=== PATIENT | female | born 1965 | race Two or more races ===

== ENCOUNTER → 2020-05-25 | Day surgery (SDC) | payer MEDICAID ==
[2020-05-05 10:47] LABS: APPEARANCE,URINE CLEAR; BILIRUBIN, URINE NEGATIVE (NEGATIVE); COLOR,URINE PALE YELLOW; GLUCOSE, URINE (UA) NEGATIVE (NEGATIVE); KETONES,URINE NEGATIVE (NEGATIVE); LEUKOCYTE ESTERASE ,URINE 1+ (NEGATIVE); NITRITE,URINE NEGATIVE (NEGATIVE); PH,URINE 7 (4.5-8.0); PROTEIN,URINE NEGATIVE (NEGATIVE); UROBILINOGEN,URINE NORMAL MG/DL (0.0-1.0)
[2020-05-05 10:48] LABS: BASOPHILS % (AUTO) 1.5 % (0.0-2.0); EOSINOPHILS % (AUTO) 1.9 % (0.0-3.0); HEMATOCRIT 48.2 % (37.0-47.0); HEMOGLOBIN 15.7 G/DL (12.0-16.0); LYMPHOCYTES % (AUTO) 29.9 % (20.0-45.0); MEAN CORPUSCULAR VOLUME 97 FL (80-99); MONOCYTES % (AUTO) 5.5 % (1.0-10.0); NEUTROPHILS % (AUTO) 61.1 % (45.0-75.0); PLATELET COUNT 187 K/UL (150-450); RED BLOOD COUNT 4.98 M/UL (4.20-5.40); RED CELL DISTRIBUTION WIDTH 12.6 % (11.6-14.8); WHITE BLOOD COUNT 5.1 K/UL (4.8-10.8)
[2020-05-05 10:55] LABS: ANION GAP 5 mmol/L (5-15); BLOOD UREA NITROGEN 11 mg/dL (7-18); CALCIUM 8.6 MG/DL (8.5-10.1); CARBON DIOXIDE 30 MMOL/L (21-32); CHLORIDE 106 MMOL/L (98-107); CREATININE 0.8 MG/DL (0.55-1.30); POTASSIUM 4.1 MMOL/L (3.5-5.1); SODIUM 141 MMOL/L (136-145)
--- NOTE | 2020-05-05 14:45 | Pre-op HX & Phy Repo 2 SIG ---
DATE OF ADMISSION: 05/09/2020 SCHEDULED FOR OUTPATIENT SURGERY: 05/09/2020. HISTORY OF PRESENT ILLNESS: The patient is a 55-year-old female in overall good health, who presented for routine breast imaging studies, which revealed in the left breast at 12 o'clock, a 14 mm area of calcifications. Core biopsy revealed ductal carcinoma in situ, possible microinvasive carcinoma. She underwent MRI that confirmed the abnormal area in the left breast between 10:00 and 1 o'clock. She was seen by oncologist, who recommended a partial mastectomy and then radiation therapy, pending final pathology. The patient has no family history of breast cancer. No prior history of breast disease. PAST MEDICAL HISTORY AND MEDICATIONS: She sometimes takes pain medications for her knees. ALLERGIES: None. OPERATIONS: Total abdominal hysterectomy and bilateral salpingo-oophorectomy 12 years ago. REVIEW OF SYSTEMS: She is 2, para 2. PHYSICAL EXAMINATION: VITAL SIGNS: The patient is 5 feet 4 inches, 169 pounds. Vital signs within normal limits. HEENT: Within normal limits. LUNGS: Clear. HEART: Regular rhythm. BREASTS: Moderately large and ptotic. Right breast unremarkable. Left breast has some nodularity between 10:00 and 1:00 superior to the areolar border. There is no axillary or supraclavicular lymphadenopathy. ABDOMEN: Soft. PELVIC AND RECTAL: Per primary care. EXTREMITIES: Without edema. NEUROLOGIC: Physiologic. IMPRESSION: Ductal carcinoma in situ, left breast, rule out microinvasive cancer. PLAN: Left breast partial mastectomy with preoperative needle localization. DISCUSSION: I have had a full discussion with the patient regarding the nature of her condition, the nature of the surgery, indications, alternatives, options, and risks including bleeding, infection, scarring or distortion of breast or nipple, need for additional treatment including additional surgery, radiation, chemotherapy or hormonal therapy based on final pathology, etc. All questions have been answered. She understands and agrees to proceed. Alex Bailey M.D. DR: LEON JOB#: [id number] CC: TREMAINE
--- NOTE | 2020-05-07 16:12 | Cardiology Report ---
APPROVED REPORT EKG Measurement Heart [id number] <Conclusion> Normal sinus rhythm Left axis deviation Possible Anterior infarct, age undetermined Abnormal ECG
[2020-05-23 10:32] LABS: BASOPHILS % (AUTO) 1.5 % (0.0-2.0); EOSINOPHILS % (AUTO) 1.8 % (0.0-3.0); HEMATOCRIT 47.2 % (37.0-47.0); HEMOGLOBIN 15.8 G/DL (12.0-16.0); LYMPHOCYTES % (AUTO) 33.9 % (20.0-45.0); MEAN CORPUSCULAR VOLUME 94 FL (80-99); MONOCYTES % (AUTO) 6.1 % (1.0-10.0); NEUTROPHILS % (AUTO) 56.8 % (45.0-75.0); PLATELET COUNT 217 K/UL (150-450); RED BLOOD COUNT 5.01 M/UL (4.20-5.40); RED CELL DISTRIBUTION WIDTH 12.7 % (11.6-14.8); WHITE BLOOD COUNT 5.1 K/UL (4.8-10.8)
[2020-05-23 10:53] LABS: APPEARANCE,URINE CLEAR; BILIRUBIN, URINE NEGATIVE (NEGATIVE); GLUCOSE, URINE (UA) NEGATIVE (NEGATIVE); KETONES,URINE 1+ (NEGATIVE); LEUKOCYTE ESTERASE ,URINE 1+ (NEGATIVE); NITRITE,URINE NEGATIVE (NEGATIVE); PH,URINE 6.5 (4.5-8.0); PROTEIN,URINE 1+ (NEGATIVE); UROBILINOGEN,URINE NORMAL MG/DL (0.0-1.0)
[2020-05-23 11:04] LABS: COLOR,URINE YELLOW
--- NOTE | 2020-05-24 10:15 | Pre-op HX & Phy Repo 2 SIG ---
DATE OF ADMISSION: 05/25/2020 DATE OF SURGERY: Scheduled for outpatient surgery, May 25, 2020. HISTORY OF PRESENT ILLNESS: The patient is a 55-year-old female in overall stable health with ductal carcinoma in situ of the left breast. She originally had imaging that showed calcifications measuring 14 mm in the left breast at 12 o'clock and core biopsy revealed ductal carcinoma in situ, rule out microinvasive cancer. The patient underwent an MRI of her breasts with contrast, which revealed more extensive disease in the left breast between 10 and 1 o'clock. Additional core biopsies of the left breast at 1 o'clock as well as the left breast at 11 o'clock revealed ductal carcinoma in situ. She is scheduled to undergo left breast partial mastectomy with bracketing needle localization. The patient has been seen by Oncology in consultation who agreed with the plan for partial mastectomy and then radiation therapy into the breast. Pending final pathology, additional treatments may be needed. PAST MEDICAL HISTORY/MEDICATIONS: She takes intermittent pain medications for her knees pain. ALLERGIES: None. OPERATIONS: Total abdominal hysterectomy with bilateral salpingo-oophorectomy 12 years ago. REVIEW OF SYSTEMS: She is 2, para 2. PHYSICAL EXAMINATION: GENERAL: The patient is 5 feet 4 inches, 169 pounds. VITAL SIGNS: Within normal limits. HEENT: Within normal limits. LUNGS: Clear. HEART: Regular rhythm. BREASTS: Moderately large and ptotic. Right breast is unremarkable. Left breast has palpable nodularity above the areola between 10 and 1 o'clock. There is no palpable axillary or supraclavicular lymphadenopathy. ABDOMEN: Soft. PELVIC: Per primary care. RECTAL: Per primary care. EXTREMITIES: Without edema. NEUROLOGIC: Physiologic. IMPRESSION: Ductal carcinoma, left breast, extensive. PLAN: Left breast partial mastectomy with preoperative bracketing needle localization. DISCUSSION: I have had a full discussion with the patient regarding the nature of the condition, the nature of the surgery, indications, alternatives, options, and risks including bleeding, infection, scarring or distortion of breast or nipple, need for additional treatment including possible additional surgery based on final pathology, etc. All questions have been answered. The patient understands and agrees to proceed. lAex Bailey M.D. DR: DAVIS JOB#: [id number] CC:
[~2020-05-25] VITALS: Ht 162.6 cm; Wt 74.8 kg
[2020-05-25] VITALS (11 sets, daily range): BP systolic 105–139; BP diastolic 63–75
[~2020-05-25] MED LIST: Acetaminophen (Non formulary) 100 ML IV ONE; Atropine Sulfate 0.4mg/ml inj IVP PRN; Bacitracin 50000 Units Vial ONE; Bacitracin Oint 15gm Tube TOPIC ONE; CENTRUM COMPLE1 EAC1 PO; D5 1/2NS 1,000 ML IV SCH; DiphenhydrAMINE 50mg/ml Inj IVP PRN; HYDROcodone/Acetamin 5/325 tab ORAL PRN; HYDROcodone/Acetamin 7.5/325 tab ORAL PRN; HYDROmorphone 1mg/ml Carpuject SUBQ PRN; Hydromorphone 0.5mg/0.5ml inj IVP PRN; Ketorolac 30mg Inj IV PRN; LORazepam Inj 2mg/ml 1ml IV PRN; LR 1000ml 1,000 ML IVLG SCH; LR 1000ml ONE; Labetalol 5mg/ml 20ml vial IV PRN; Lidocaine 1% MPF 10mg/ml 5ml ONE; Meperidine 25mg/1ml Inj (FOR RIGORS ONLY) IV PRN; Metoclopramide 10mg/2ml Inj IVP PRN; Midazolam 2mg/2ml Inj IVP PRN; NEURONTIN100 MG ORAL; OMEPRAZOLE40 M1 ORAL; PAXIL10 MG ORAL; Tylenol #3 tab (300mg/30mg) ORAL PRN; VITAMIN D PO; fentaNYL 100 mcg/2 mL IV PRN; oxyCODONE HCL/Acetaminophen 5/325mg ORAL PRN
--- NOTE | 2020-05-25 10:53 | Anethesia Preoperative Eval ---
Anesthesia Pre-op PMH/ROS General Date of Evaluation: May 25, 2020 Time of Evaluation: 11:01 Anesthesiologist: Abelardo ASA Score: ASA 3 Mallampati Score Class I : Soft palate, uvula, fauces, pillars visible Class II: Soft palate, uvula, fauces visible Class III: Soft palate, base of uvula visible Class IV: Only hard plate visible Mallampati Classification: Class II Surgeon: Leo Diagnosis: Ductal carcinoma in situ Surgical Procedure: L Partial Mastectomy Anesthesia History: none Family History: no anesthesia problems Allergies: Coded Allergies: No Known Allergies (Unverified , 05/23/20) Medications: see eMAR Patient NPO?: Yes Past Medical History Cardiovascular: Reports: HTN Gastrointestinal/Genitourinary: Reports: GERD - Gastritis Neurologic/Psychiatric: Reports: depression/anxiety Hematology/Immune: Reports: other - BBL Breast ductal carcinoma in situ Anesthesia Pre-op Phys. Exam Physician Exam Last Vital Signs Date Time Temp Pulse Resp B/P (MAP) Pulse Ox O2 Delivery O2 Flow Rate FiO2 05/25/20 09:58 Room Air 05/25/20 09:37 98.4 62 18 118/75 97 Constitutional: NAD Neurologic: CN 2-12 intact Cardiovascular: RRR Respiratory: CTA Gastrointestinal: S/NT/ND Airway Exam Mallampati Score: Class II MO: full ROM: full Teeth: missing, intact Anesthesia Pre-op A/P Risk Assessment & Plan Assessment: ASA 3 Plan: GA, SED Status Change Before Surgery: No Pre-Antibiotics Dru Gram Ancef IV Given Within 1 Hr of Incision: Yes Time Given: 11:21 Lawrence Zhou MD May 25, 2020 10:53
--- NOTE | 2020-05-25 10:54 | Immediate Post-Op Evaluation ---
Immediate Post-Op Evalulation Immediate Post-Op Evalulation Procedure: L Breast Partial Mastectomy Date of Evaluation: May 25, 2020 Time of Evaluation: 12:55 IV Fluids: 1000 LR Blood Products: 0 Estimated Blood Loss: 20 Urinary Output: 0 Blood Pressure Systolic: 139 Blood Pressure Diastolic: 69 Pulse Rate: 79 Respiratory Rate: 16 O2 Sat by Pulse Oximetry: 99 Temperature (Fahrenheit): 97.1 Pain Score (1-10): 2 Nausea: No Vomiting: No Complications 0 Patient Status: awake, reacts, patent, none Hydration Status: adequate Dru Gram Ancef IV Given Within 1 Hr of Incision: Yes Time Given: 11:21 Lawrence Zhou MD May 25, 2020 10:54
--- NOTE | 2020-05-25 10:57 | Pre-Procedure Note/Attestation ---
Pre-Procedure Note/Attestation Complete Prior to Procedure Planned Procedure: left Procedure Narrative: left breast partial mastectomy with pre-operative bracketing needle localization Indications for Procedure Pre-Operative Diagnosis: ductal carcinoma in situ left breast Attestation I attest that I discussed the nature of the procedure; its benefits; risks and complications; and alternatives (and the risks and benefits of such alternatives), prior to the procedure, with the patient (or the patient's legal personal banking representative). I attest that, if there was a reasonable possibility of needing a blood transfusion, the patient (or the patient's legal personal banking representative) was given the [facility] standardized written summary, pursuant to the Nigel Winslow Blood Safety Act ([place] Health and Safety Code # 1645, as amended). I attest that I re-evaluated the patient just prior to the surgery and that there has been no change in the patient's H&P, except as documented below:none Alex Bailey MD May 25, 2020 10:57
--- NOTE | 2020-05-25 11:49 | 48 Hour Post Anesthesia Eval ---
Post Anesthesia Evaluation Procedure: L Breast Partial Mastectomy Date of Evaluation: May 25, 2020 Time of Evaluation: 15:32 Blood Pressure Systolic: 138 0: 64 Pulse Rate: 73 Respiratory Rate: 18 Temperature (Fahrenheit): 98 O2 Sat by Pulse Oximetry: 98 Airway: patent Nausea: No Vomiting: No Pain Intensity: 2 Hydration Status: adequate Cardiopulmonary Status: Stable Mental Status/LOC: patient returned to baseline Follow-up Care/Observations: 0 Post-Anesthesia Complications: 0 Follow-up care needed: ready to discharge Lawrence Zhou MD May 25, 2020 11:49
--- NOTE | 2020-05-25 12:42 | Brief Operative Note ---
Immediate Post Operative Note Operative Note Pre-op Diagnosis: ductal carcinoma in situ left breast Procedure: left breast partial mastectomy with pre-operative bracketing needle localization Post-op Diagnosis: multifocal ductal carcinoma in situ left breast Post-op Diagnosis: same as pre-op Findings: consistent w/pre-op dx studies Surgeon: venkata Anesthesiologist: lilly Specimen: yes - left breast tissue Complications: none Condition: stable Fluids: see anesthesia record Estimated Blood Loss: minimal Drains: none Implant(s) used?: No Alex Bailey MD May 25, 2020 12:42
--- NOTE | 2020-05-25 14:45 | Operative Note - Dictated ---
DATE OF OPERATION: 05/25/2020 SURGEON: Alex Bailey M.D. ANESTHESIOLOGIST: Lawrence Zhou M.D. TYPE OF ANESTHESIA: General. PREOPERATIVE DIAGNOSIS: Multifocal ductal carcinoma in situ, left breast. POSTOPERATIVE DIAGNOSIS: Multifocal ductal carcinoma in situ, left breast. OPERATION PERFORMED: Left breast partial mastectomy with bracketing needle localization. DESCRIPTION OF PROCEDURE: The patient was taken to the operating room and under general anesthesia with sequential compression device stockings in place, she was prepped and draped in usual fashion. The lesions extended in the upper breast from 10 o'clock to 1 o'clock with 2 wire localizations that had been placed. A curvilinear breast incision was made in the upper breast achieving hemostasis with cautery. Flaps were dissected circumferentially and the wire was brought into the field. A partial mastectomy was accomplished with sutures marking the specimen anterior, superior, and medial. Specimen radiograph revealed the presence of both wires and all the previously placed clips as well as the calcifications. The field was irrigated with sterile water, followed by antibiotic solution. Hemostasis was carefully and meticulously achieved with cautery. The incision was closed with interrupted 2-0 Vicryl deep dermal subcutaneous sutures, followed by continuous 4-0 Monocryl subcuticular suture. Mastisol and half-inch Steri-Strips were applied, followed by dry sterile dressing. Final sponge and needle counts were correct. The patient tolerated the procedure well and left the operating room in good condition. Alex Bailey M.D. DR: CHIKI JOB#: [id number] CC:
== END | disposition home or self-care (01) ==
LOC: SUR 09:02
DX: D05.12 Intraductal carcinoma in situ of left breast (principal); Z90.722 Acquired absence of ovaries, bilateral; I10 Essential (primary) hypertension; K21.9 Gastro-esophageal reflux disease without esophagitis; F32.9 Major depressive disorder, single episode, unspecified; F41.9 Anxiety disorder, unspecified
CPT/HCPCS: 19301; 36415; 80048; 81001; 81003; 85025; 85610; 85730; 93005; 94003; J0131; J0690; J1100; J1170; J1885; J2250; J2405; J3010; J7120; U0002; Z7512; 94150